=== PATIENT | male | born 1955 | race Caucasian/White ===

== ENCOUNTER 2021-04-03 06:30 | Day surgery (SDC) | payer OTHER ==
[2021-03-31 10:54] LABS: Absolute Lymphocytes (CBC) 1.9 K/uL (0.7-4.9); Basophils % 0.4 % (0-1.3); Lymphocytes % 18.7 % (15.3-44.8); RBC Red Blood Cell Count 4.82 M/uL (4.33-5.43)
[2021-03-31 11:00] LABS: Protime INR 2.68
[2021-03-31 11:11] LABS: Potassium 3.9 mmol/L (3.5-5.1)
[2021-04-03] MEDS ORDERED: METOPROLOL TARTRATE 5 MG/5 ML INJ IV ONE (06:54)
[2021-04-03] MEDS ORDERED: ATROPINE SULF 1 MG/10 ML SYR IV ONE (06:55)
[2021-04-03] MEDS ORDERED: MIDAZOLAM HCL 10 ML ONE (06:55)
[2021-04-03] MEDS ORDERED: FLUMAZENIL 0.1 MG/ML (5 mL VIAL) IV ONE (06:55)
[2021-04-03] MEDS ORDERED: NA CHLORIDE 0.9% 500 ML ONE (07:11)
[2021-04-03] MEDS ORDERED: MIDAZOLAM HCL 2 MG/2 ML INJ ONE (07:53)
--- NOTE | 2021-04-03 09:46 | OP ---
Date of Procedure: 04/03/2021 Surgeon: Franklyn Elliott MD [employer] Operator: Melissa Silva and Ms. Best. I will discuss his case with housekeeper home. I think I may put him on flecainide or amiodarone down the road. I will see him in the office in 2 weeks. Mr. Neely is a 65-year-old, admitted to my service as an outpatient today. Reason For Admission: Direct current cardioversion. Indication: New onset atrial fibrillation that has failed metoprolol and Xarelto. History Of Present Illness: Mr. Neely is a 65-year-old who has had a negative cardiac workup, new onset atrial fibrillation, symptomatic. Failed metoprolol and Xarelto. Procedure In Detail: In the manager labor delivery today he was given in recovery room. He was given a total of 12 mg of Versed for total sedation. He received 1 shock with 100 joules and another one of 200 joules. He converted to sinus rhythm but while in Recovery, he went back into atrial fibrillati on. He received 5 mg of IV metoprolol. Another shock of 200 failed to convert him to sinus rhythm a gain. We will plan to continue his metoprolol and Xarelto for now. He can go home whenever he is aw jin. He had a failed cardioversion. Anesthesia: Total conscious sedation 20 minute. Blood Loss: No blood loss. Complications: No complications. MADI/KEYLA Voice ID: [id number] Report ID: [id number]
[2021-04-03 09:48] VITALS: TEMP 97.4; O2SAT 100
[2021-04-03 11:06] VITALS: BP 115/88
== END 2021-04-03 10:45 | disposition home or self-care (01) ==
LOC: CCL 06:30
DX: I48.0 Paroxysmal atrial fibrillation (principal); I10 Essential (primary) hypertension; E78.2 Mixed hyperlipidemia; F10.20 Alcohol dependence, uncomplicated; Z87.891 Personal history of nicotine dependence; Z82.49 Family history of ischemic heart disease and other diseases of the circulatory system
CPT/HCPCS: 93005; 85025; 80048; 36415; 85610; 85730; 92960; J2250 ×2; J7040

== ENCOUNTER 2021-05-08 07:16 | Day surgery (SDC) | payer OTHER ==
[2021-05-05 09:31] LABS: Hematocrit 46.7 % (39.6-49.0); Lymphocytes % 35.3 % (15.3-44.8); MPV 8.8 fL (7.6-11.3); RBC Red Blood Cell Count 5.08 M/uL (4.33-5.43)
[2021-05-05 09:38] LABS: Protime INR 2.21
--- NOTE | 2021-05-05 09:57 | RAD REPORT ---
EXAM DESCRIPTION: RAD - Chest Pa And Lat (2 Views) - 05/05/2021 9:18 am CLINICAL HISTORY: Pre op pending cardioversion COMPARISON: No comparisons FINDINGS: Lines: None. Lungs: No evidence of edema or pneumonia. Pleural: No significant pleural effusions or pneumothorax. Cardiac: The heart size is within normal limits. Bones: No acute fractures. Other: IMPRESSION: No acute cardiopulmonary disease.
[2021-05-08] MEDS ORDERED: NA CHLORIDE 0.9% 0 ML ONE (07:35)
[2021-05-08] MEDS ORDERED: ATROPINE SULF 1 MG/10 ML SYR IV ONE ×2 (07:57→10:35)
[2021-05-08] MEDS ORDERED: FLUMAZENIL 0.1 MG/ML (5 mL VIAL) IV ONE ×2 (07:57→10:35)
[2021-05-08] MEDS ORDERED: METOPROLOL TARTRATE 5 MG/5 ML INJ IV ONE ×2 (07:57→10:35)
[2021-05-08] MEDS ORDERED: MIDAZOLAM HCL 10 ML ONE (10:35)
[2021-05-08] MEDS ORDERED: NA CHLORIDE 0.9% 500 ML ONE (10:37)
--- NOTE | 2021-05-08 11:24 | OP ---
Date of Procedure: 05/08/2021 Surgeon: Franklyn Elliott MD Procedure: Direct current cardioversion. Indication: Recurrent atrial fibrillation despite flecainide therapy. The patient intolerant to bet a-blockers. Procedure In Detail: Brought to the laboratory [facility] today as an outpatient. He received 10 mg of Versed IV push total. He received 1 shock of 100 joules and remained in atrial fibrillation. I gave him 5 mg of metoprolol IV push. Then, I shocked him 200 joules and he converted to sinus rhythm. There were no complications. Blood Loss: None. Postoperative Diagnosis: Atrial fibrillation converted to sinus rhythm, successful cardioversion. Plan: To continue medical therapy except increase the flecainide from 50 b.i.d. to 100 b.i.d. He wi ll go home whenever he wakes up. He will see me in the office in 1 week. MADI/KEYLA Voice ID: [id number] Report ID: [id number]
[2021-05-08 12:04] VITALS: O2SAT 100
[2021-05-08 12:15] VITALS: BP 104/76
[2021-05-08 12:18] VITALS: TEMP 97
== END 2021-05-08 12:22 | disposition home or self-care (01) ==
LOC: CCL 07:16
DX: I48.0 Paroxysmal atrial fibrillation (principal); I10 Essential (primary) hypertension; E78.2 Mixed hyperlipidemia; F10.20 Alcohol dependence, uncomplicated; Z87.891 Personal history of nicotine dependence; Z82.49 Family history of ischemic heart disease and other diseases of the circulatory system
CPT/HCPCS: 85025; 80048; 36415; 85610; 85730; 71046; 92960; J2250; J7040

== ENCOUNTER 2022-12-05 09:16 | Observation (INO) | payer OTHER ==
[2022-12-05 09:43] LABS: Absolute Lymphocytes (CBC) 1.4 K/uL (0.7-4.9); Hematocrit 46.3 % (39.6-49.0); Lymphocytes % 20.9 % (15.3-44.8); MCV 96.6 fL (80-100); MPV 8.8 fL (7.6-11.3); Platelets 224 thou/uL (152-406); RBC Red Blood Cell Count 4.79 M/uL (4.33-5.43)
[2022-12-05 09:47] LABS: Protime INR 2.63
[2022-12-05] MEDS ORDERED: DIGOXIN 0.25 MG/ML AMP ONE (09:53)
[2022-12-05] MEDS ORDERED: MAGNESIUM SULFATE 1 gm IVPB 1 GM/100 ML BAG IV ONE (09:54)
[2022-12-05] MEDS ORDERED: NA CHLORIDE 0.9% 1,000 ML ONE (09:54)
[2022-12-05] MEDS ORDERED: METOPROLOL TARTRATE 5 MG/5 ML INJ IV ONE ×3 (09:54→10:39)
[2022-12-05 10:09] LABS: Albumin 4.1 g/dL (3.4-5.0); Bilirubin Direct 0.4 mg/dL (0-0.2); Bilirubin Indirect, Calculated 1.2 mg/dL (0.2-0.8); Bilirubin Total 1.6 mg/dL (0.2-1.0); Magnesium 1.9 mg/dL (1.6-2.4); Potassium 3.6 mEq/L (3.5-5.1); Protein, Total 8.5 g/dL (6.4-8.2); Thyroid Stimulating Hormone 1.74 uIU/mL (0.358-3.740); Troponin High Sensitivity 10.7 pg/mL (<58.9)
--- NOTE | 2022-12-05 10:42 | RAD REPORT ---
EXAM DESCRIPTION: PETARChest Single View12/05/2022 10:12 am CLINICAL HISTORY: CHEST PAIN COMPARISON: Chest Pa And Lat (2 Views) dated 05/05/2021 TECHNIQUE: Portable AP view of the chest. FINDINGS: The lungs are clear. No pneumothorax or effusion. The cardiomediastinal contours are unrem arkable. IMPRESSION: No acute cardiopulmonary process.
--- NOTE | 2022-12-05 12:46 | ER ---
Nurse's Notes [facility] Name: Kale Neely Age: 67 yrs Sex: Male : 1955 Arrival Date: 12/05/2022 Time: 09:16 Bed 6 Private MD: Aldo Small V Diagnosis: Persistent atrial fibrillation;adjunct faculty for medical terminology (current) use of anticoagulants Presentation: 12/05 09:35 Chief complaint: Patient states: he was sent by dr. rose for an abnormal EKG. patient ap3 denies any chest pain, or associated symptoms at this time. Coronavirus screen: At this time, the client does not indicate any symptoms associated with coronavirus-19. Ebola Screen: No symptoms or risks identified at this time. Initial Sepsis Screen: Does the patient meet any 2 criteria? No. Patient's initial sepsis screen is negative. Does the patient have a suspected source of infection? No. Patient's initial sepsis screen is negative. Risk Assessment: Do you want to hurt yourself or someone else? Patient reports no desire to harm self or others. Onset of symptoms was December 05, 2022. 09:35 Method Of Arrival: Ambulatory ap3 09:35 Acuity: KORI 2 ap3 Triage Assessment: 09:38 General: Appears in no apparent distress. Behavior is calm, cooperative, appropriate ap3 for age. Pain: Denies pain. Neuro: Level of Consciousness is awake, alert, obeys commands, Oriented to person, place, time, situation. Cardiovascular: Patient's skin is warm and dry. Rhythm is atrial fibrillation. Respiratory: Airway is patent Respiratory effort is even, unlabored, Respiratory pattern is regular, symmetrical. Historical: - Allergies: 09:36 No Known Allergies; ap3 - Home Meds: 09:36 metoprolol succinate 100 mg oral Tablet, Extended Release 24 hr daily [Active]; ap3 rosuvastatin 5 mg oral tablet [Active]; Xarelto oral [Active]; - PMHx: 09:36 Atrial fibrillation; Hypercholesterolemia; ap3 - Immunization history:: Client reports having NOT received the Covid vaccine. - Social history:: Smoking status: Patient denies any tobacco usage or history of. Patient uses alcohol, on a daily basis. Screenin:39 [facility] ED Fall Risk Assessment (Adult) History of falling in the last 3 months, ap3 including since admission No falls in past 3 months (0 pts). Abuse screen: Denies threats or abuse. Nutritional screening: No deficits noted. Tuberculosis screening: No symptoms or risk factors identified. Assessment: 12:15 Reassessment: No changes from previously documented assessment. Patient and/or family mb9 updated on plan of care and expected duration. Pain level reassessed. Patient is alert, oriented x 3, equal unlabored respirations, skin warm/dry/pink. 13:30 Reassessment: No changes from previously documented assessment. Patient and/or family mb9 updated on plan of care and expected duration. Pain level reassessed. Patient is alert, oriented x 3, equal unlabored respirations, skin warm/dry/pink. 14:41 Reassessment: No changes from previously documented assessment. Patient and/or family mb9 updated on plan of care and expected duration. Pain level reassessed. Patient is alert, oriented x 3, equal unlabored respirations, skin warm/dry/pink. 16:44 Reassessment: No changes from previously documented assessment. Patient and/or family mb9 updated on plan of care and expected duration. Pain level reassessed. Patient is alert, oriented x 3, equal unlabored respirations, skin warm/dry/pink. 17:15 Reassessment: See [facility] for further charting. mb9 17:35 Reassessment: ATTEMPTED TO CALL REPORT, NO ANSWER. bp 17:45 Reassessment: ATTEMPTED TO CALL REPORT, NO ANSWER. bp 18:05 Reassessment: ATTEMPTED TO CALL REPORT, NO ANSWER. PT JOSHUA FOR B/S REPORT. bp Vital Signs: 09:35 BP 170 / 112; Pulse 129; Resp 19; Pulse Ox 100% ; Weight 86.18 kg; Pain 0/10; ap3 09:57 BP 152 / 98; Pulse 108; Pulse Ox 100% ; ap3 10:15 BP 165 / 101; Pulse 81; Pulse Ox 99% on R/A; ap3 10:49 BP 161 / 107; Pulse 77; Pulse Ox 97% on R/A; ap3 12:15 BP 165 / 104; Pulse 86; Resp 18; Pulse Ox 98% on R/A; mb9 12:48 BP 159 / 99; Pulse 95; Resp 16; Pulse Ox 97% on R/A; mb9 13:43 BP 147 / 96; Pulse 80; Resp 17; Pulse Ox 97% on R/A; mb9 13:43 Height 5 ft. 6 in. ; mb9 14:41 BP 153 / 99; Pulse 80; Resp 18; Pulse Ox 100% on R/A; mb9 16:44 BP 143 / 87; Pulse 77; Resp 18; Pulse Ox 100% on R/A; mb9 13:43 Body Mass Index 30.67 (86.18 kg, 167.64 cm) mb9 09:35 Pain Scale: Adult ap3 ED Course: 09:18 Patient arrived in ED. rg4 09:19 Aldo Small MD is Private Physician. rg4 09:19 Az Walker MD is Attending Physician. hira 09:30 Initial lab(s) drawn, by me, sent to lab. EKG done, by ED staff, reviewed by Az Walker MD. Inserted saline lock: 20 gauge in right antecubital area, using aseptic technique. Blood collected. 09:35 Tessa Maloney RN is Primary Nurse. ap3 09:36 Triage completed. ap3 09:39 Arm band placed on right wrist. ap3 09:39 Patient has correct armband on for positive identification. Placed in gown. Bed in low ap3 position. Call light in reach. Adult w/ patient. Provided Education on: need for continued monitoring. doubler operator on. Pulse ox on. NIBP on. 09:57 xray at bedside. ap3 10:13 XRAY Chest (1 view) In Process Unspecified. EDMS 12:15 Report received from VANIA Zarate. mb9 12:44 Aldo Small MD is Hospitalizing Provider. hira 18:27 No provider procedures requiring assistance completed. Patient admitted, IV remains in bp place. Administered Medications: 09:50 Drug: Metoprolol IVP 5 mg Route: IVP; Site: right antecubital; ap3 10:35 Follow up: Response: No adverse reaction ap3 09:55 Drug: Digoxin IVP 0.5 mg Route: IVP; Site: right antecubital; ap3 10:35 Follow up: Response: No adverse reaction ap3 09:57 Drug: NS 0.9% IV 1000 ml Route: IV; Rate: 125 ml/hr; Site: right antecubital; ap3 18:29 Follow up: IV Status: Completed infusion; IV Intake: 1000ml bp 09:57 Drug: Magnesium Sulfate IVPB 1 grams Route: IVPB; Infused Over: 1 hrs; Site: right ap3 antecubital; 11:03 Follow up: Response: No adverse reaction; IV Status: Completed infusion; IV Intake: nj1 100ml 10:03 Drug: Metoprolol IVP 5 mg Route: IVP; Site: right antecubital; ap3 10:35 Follow up: Response: No adverse reaction ap3 10:35 Drug: Metoprolol IVP 5 mg Route: IVP; Site: right antecubital; ap3 11:06 Follow up: Response: No adverse reaction ap3 12:48 Drug: Sotalol PO 80 mg Route: PO; mb9 14:41 Follow up: Response: No adverse reaction mb9 Intake: 11:03 IV: 100ml; Total: 100ml. nj1 18:29 IV: 1000ml; Total: 1100ml. bp Outcome: 12:46 Decision to Hospitalize by Provider. hira 18:27 Admitted to Med/surg accompanied by nurse, via wheelchair, room 212, with chart, Report bp called to BEDSIDE REPORT ZAKI CARO 18:27 Condition: stable 18:27 Instructed on the need for admit. 18:29 Patient left the ED. bp Signatures: Dispatcher [employer] EDMS Az Walker MD MD cha Garcia, Rubi rg4 Karson Burdick RN RN Tessa Buenrostro RN RN ap3 Elaine Barriga RN RN mb9 Caroline Pickens RN RN nj1
--- NOTE | 2022-12-05 12:46 | EDPHYS ---
Physician Documentation [facility] Name: Kale Neely Age: 67 yrs Sex: Male : 1955 Arrival Date: 12/05/2022 Time: 09:16 Bed 6 Private MD: Aldo Small V ED Physician Az Walker HPI: 12/05 09:34 This 67 yrs old Male presents to ER via Unassigned with complaints of hira Abnormal EKG. 09:34 The patient presents with a history of irregular heart beat, heart racing. Context: The hira symptoms occur at rest, with light activity. Onset: The symptoms/episode began/occurred yesterday. Duration: The patient or guardian reports multiple episodes, with no pattern. Modifying factors: The symptoms are aggravated by nothing. The symptoms are alleviated by nothing. Associated signs and symptoms: The patient has no apparent associated signs or symptoms. Severity of symptoms: At their worst the symptoms were mild in the emergency department the symptoms are unchanged. The patient has experienced similar episodes in the past, a few times. Historical: - Allergies: 09:36 No Known Allergies; ap3 - Home Meds: 09:36 metoprolol succinate 100 mg oral Tablet, Extended Release 24 hr daily [Active]; ap3 rosuvastatin 5 mg oral tablet [Active]; Xarelto oral [Active]; - PMHx: 09:36 Atrial fibrillation; Hypercholesterolemia; ap3 - Immunization history:: Client reports having NOT received the Covid vaccine. - Social history:: Smoking status: Patient denies any tobacco usage or history of. Patient uses alcohol, on a daily basis. ROS: 09:40 Constitutional: Negative for fever, chills, and weight loss, Eyes: Negative for injury, hira pain, redness, and discharge, ENT: Negative for injury, pain, and discharge, Neck: Negative for injury, pain, and swelling, Respiratory: Negative for shortness of breath, cough, wheezing, and pleuritic chest pain, Abdomen/GI: Negative for abdominal pain, nausea, vomiting, diarrhea, and constipation, Back: Negative for injury and pain, : Negative for injury, bleeding, discharge, and swelling, MS/Extremity: Negative for injury and deformity, Skin: Negative for injury, rash, and discoloration, Neuro: Negative for headache, weakness, numbness, tingling, and seizure, Psych: Negative for depression, anxiety, suicide ideation, homicidal ideation, and hallucinations, Allergy/Immunology: Negative for hives, rash, and allergies, Endocrine: Negative for neck swelling, polydipsia, polyuria, polyphagia, and marked weight changes, Hematologic/Lymphatic: Negative for swollen nodes, abnormal bleeding, and unusual bruising. 09:40 Cardiovascular: Positive for palpitations. Exam: 09:40 Constitutional: This is a well developed, well nourished patient who is awake, alert, hira and in no acute distress. Head/Face: Normocephalic, atraumatic. Eyes: Pupils equal round and reactive to light, extra-ocular motions intact. Lids and lashes normal. Conjunctiva and sclera are non-icteric and not injected. Cornea within normal limits. Periorbital areas with no swelling, redness, or edema. ENT: Nares patent. No nasal discharge, no septal abnormalities noted. Tympanic membranes are normal and external auditory canals are clear. Oropharynx with no redness, swelling, or masses, exudates, or evidence of obstruction, uvula midline. Mucous membranes moist. Neck: Trachea midline, no thyromegaly or masses palpated, and no cervical lymphadenopathy. Supple, full range of motion without nuchal rigidity, or vertebral point tenderness. No Meningismus. Chest/axilla: Normal chest wall appearance and motion. Nontender with no deformity. No lesions are appreciated. Respiratory: Lungs have equal breath sounds bilaterally, clear to auscultation and percussion. No rales, rhonchi or wheezes noted. No increased work of breathing, no retractions or nasal flaring. Abdomen/GI: Soft, non-tender, with normal bowel sounds. No distension or tympany. No guarding or rebound. No evidence of tenderness throughout. Back: No spinal tenderness. No costovertebral tenderness. Full range of motion. Male : Normal genitalia with no discharge or lesions. Skin: Warm, dry with normal turgor. Normal color with no rashes, no lesions, and no evidence of cellulitis. MS/ Extremity: Pulses equal, no cyanosis. Neurovascular intact. Full, normal range of motion. Neuro: Awake and alert, GCS 15, oriented to person, place, time, and situation. Cranial nerves II-XII grossly intact. Motor strength 5/5 in all extremities. Sensory grossly intact. Cerebellar exam normal. Normal gait. Psych: Awake, alert, with orientation to person, place and time. Behavior, mood, and affect are within normal limits. 09:40 Cardiovascular: Rate: tachycardic, actual rate is 129 bpm, Rhythm: irregularly irregular, Pulses: Pulses are 4+ in bilateral radial, brachial, femoral, popliteal, posterior tibial and and dorsalis pedis arteries.. Heart sounds: normal, normal S1and S2, no S3 or S4, no murmur, no rub, no gallop, Edema: is not appreciated, JVD: is not appreciated. 09:42 ECG was reviewed by the Attending Physician. [facility] 12:58 ECG was reviewed by the Attending Physician. [facility] Vital Signs: 09:35 BP 170 / 112; Pulse 129; Resp 19; Pulse Ox 100% ; Weight 86.18 kg; Pain 0/10; ap3 09:57 BP 152 / 98; Pulse 108; Pulse Ox 100% ; ap3 10:15 BP 165 / 101; Pulse 81; Pulse Ox 99% on R/A; ap3 10:49 BP 161 / 107; Pulse 77; Pulse Ox 97% on R/A; ap3 12:15 BP 165 / 104; Pulse 86; Resp 18; Pulse Ox 98% on R/A; mb9 12:48 BP 159 / 99; Pulse 95; Resp 16; Pulse Ox 97% on R/A; mb9 13:43 BP 147 / 96; Pulse 80; Resp 17; Pulse Ox 97% on R/A; mb9 13:43 Height 5 ft. 6 in. ; mb9 14:41 BP 153 / 99; Pulse 80; Resp 18; Pulse Ox 100% on R/A; mb9 16:44 BP 143 / 87; Pulse 77; Resp 18; Pulse Ox 100% on R/A; mb9 13:43 Body Mass Index 30.67 (86.18 kg, 167.64 cm) mb9 09:35 Pain Scale: Adult ap3 MDM: 09:19 Patient medically screened. [facility] 09:41 YUE Risk Score: Not Applicable. Differential diagnosis: arrythmia, dehydration. Data [facility] reviewed: vital signs, nurses notes, lab test result(s), EKG, radiologic studies. Consideration of Admission/Observation Patient was admitted/placed on observation. Escalation of care including admission/observation considered. I considered the following discharge prescriptions or medication management in the emergency department Medications were administered in the Emergency Department. See MAR. Independent interpretation of the following test(s) in the Emergency Department EKG: See my EKG interpretation above. Test considered but Not performed: CT: no ct chest. Care significantly affected by the following chronic conditions: high cholesterol, a fib. 12/05 09:26 Order name: Basic Metabolic Panel; Complete Time: 10:14 [facility] 12/05 09:26 Order name: CBC with Diff; Complete Time: 10:14 [facility] 12/05 09:26 Order name: LFT's; Complete Time: 10:14 [facility] 12/05 09:26 Order name: Magnesium; Complete Time: 10:14 [facility] 12/05 09:26 Order name: NT PRO-BNP; Complete Time: 10:14 [facility] 12/05 09:26 Order name: PT-INR; Complete Time: 10:14 [facility] 12/05 09:26 Order name: Troponin HS; Complete Time: 10:14 [facility] 12/05 09:26 Order name: TSH; Complete Time: 10:14 [facility] 12/05 09:26 Order name: Urinalysis w/ reflexes [facility] 12/05 18:12 Order name: Troponin High Sensitivity [facility] 12/05 09:26 Order name: XRAY Chest (1 view); Complete Time: 10:53 [facility] 12/05 09:26 Order name: EKG; Complete Time: 09:27 [facility] 12/05 10:55 Order name: EKG; Complete Time: 10:55 [facility] 12/05 12:54 Order name: CONS Physician Consult [facility] 12/05 09:26 Order name: Cardiac monitoring; Complete Time: 09:40 [facility] 12/05 09:26 Order name: EKG - Nurse/Tech; Complete Time: 09:40 [facility] 12/05 09:26 Order name: IV Saline Lock; Complete Time: 09:40 [facility] 12/05 09:26 Order name: Labs collected and sent; Complete Time: :40 [facility] 12/05 09:26 Order name: O2 Per Protocol; Complete Time: 09:40 [facility] 12/05 09:26 Order name: O2 Sat Monitoring; Complete Time: 09:40 [facility] 12/05 10:55 Order name: EKG - Nurse/Tech; Complete Time: 11:29 [facility] EC:42 Rate is 111 beats/min. Rhythm is irregularly irregular. QRS [place] is Normal. CO interval hira is normal. QRS interval is normal. QT interval is normal. No Q waves. T waves are Normal. No ST changes noted. Clinical impression: Atrial Fibrillation and No evidence of ischemia. Interpreted by me. Reviewed by me. 12:58 Rate is 844 beats/min. Rhythm is irregularly irregular. QRS [place] is Normal. CO interval hira is normal. QRS interval is normal. QT interval is normal. No Q waves. T waves are Normal. No ST changes noted. Clinical impression: Atrial Fibrillation and No evidence of ischemia. Interpreted by me. Reviewed by me. Administered Medications: 09:50 Drug: Metoprolol IVP 5 mg Route: IVP; Site: right antecubital; ap3 10:35 Follow up: Response: No adverse reaction ap3 09:55 Drug: Digoxin IVP 0.5 mg Route: IVP; Site: right antecubital; ap3 10:35 Follow up: Response: No adverse reaction ap3 09:57 Drug: NS 0.9% IV 1000 ml Route: IV; Rate: 125 ml/hr; Site: right antecubital; ap3 18:29 Follow up: IV Status: Completed infusion; IV Intake: 1000ml bp 09:57 Drug: Magnesium Sulfate IVPB 1 grams Route: IVPB; Infused Over: 1 hrs; Site: right ap3 antecubital; 11:03 Follow up: Response: No adverse reaction; IV Status: Completed infusion; IV Intake: nj1 100ml 10:03 Drug: Metoprolol IVP 5 mg Route: IVP; Site: right antecubital; ap3 10:35 Follow up: Response: No adverse reaction ap3 10:35 Drug: Metoprolol IVP 5 mg Route: IVP; Site: right antecubital; ap3 11:06 Follow up: Response: No adverse reaction ap3 12:48 Drug: Sotalol PO 80 mg Route: PO; mb9 14:41 Follow up: Response: No adverse reaction mb9 Disposition Summary: 12/05/22 12:46 Hospitalization Ordered Hospitalization Status: Observation hira Provider: Aldo Small cha Location: Telemetry/MedSurg (observation) hira Condition: Fair hira Problem: new hira Symptoms: have improved hira Bed/Room Type: Standard hira Room Assignment: [facility](12/05/22 17:37) bd Diagnosis - Persistent atrial fibrillation hira - intermediate frame tender (current) use of anticoagulants hira Forms: - Medication Reconciliation Form hira - SBAR form hira - Leadership Thank You Letter hira Signatures: Dispatcher [employer] Kamila Michael Corey, MD MD cha Prokisch, Amanda, RN RN ap3 Nithya, Elaine Sanchez RN RN mb9 Karson Burdick RN bp Caroline Pickens RN nj1 Corrections: (The following items were deleted from the chart) 17:37 12:46 hira bd
[2022-12-05] MEDS ORDERED: SOTALOL HCL 80 MG TAB ONE ×2 (12:57→17:48)
[2022-12-05] MEDS ORDERED: ONDANSETRON 4 MG/2 ML VIAL IV PRN (17:01)
[2022-12-05] MEDS ORDERED: ACETAMINOPHEN 325 MG TABLET PO PRN (17:01)
[2022-12-05 17:08] VITALS: BMI 28.7
[2022-12-05] MEDS ORDERED: RIVAROXABAN 20 MG TABLET PO SCH (17:11)
[2022-12-05] MEDS: SOTALOL HCL 80 MG TAB PO SCH (17:44)
[2022-12-05] MEDS ORDERED: RIVAROXABAN 20 MG TABLET PO ONE (17:48)
--- NOTE | 2022-12-05 18:06 | P.SSS ---
Patient History Date of Service: 12/05/22 Reason for admission: SOTALOL INTRODUCTION History of Present Illness: MR. COLIN HAS A FIB THAT IS NOT CONTROLLED. DR. PARKINSON SENT HIM TO ER FOR OBSERVATION FOR SOTALOL STARTUP. HE IS ON METOPROLOL SO FAR WITH XARELTO. HE IS SYMPTOMFREE. Allergies No Known Allergies Allergy (Verified 05/05/21 08:57) Home medications list reviewed: Yes Home Medications: Lisinopril/Hydrochlorothiazide [Zestoretic 10-12.5 mg Tablet] 1 each PO DAILY 05/20/15 - Past Medical/Surgical History Diabetic: No - Social History Smoking Status: Never smoker Review of Systems 10-point ROS is otherwise unremarkable General: Weakness Physical Examination - Physical Exam General: Oriented x3, Mild distress HEENT: Atraumatic, PERRLA, Mucous membr. moist/pink, EOMI, Sclerae nonicteric Neck: Supple, 2+ carotid pulse no bruit, No LAD, Without JVD or thyroid abnormality Respiratory: Clear to auscultation bilaterally, Normal air movement Cardiovascular: Irregular heart rate/rhythm Gastrointestinal: Normal bowel sounds, No tenderness Musculoskeletal: No tenderness Integumentary: No rashes Neurological: Normal gait, Normal speech, Normal strength at 5/5 x4 extr, Normal tone, Normal affect Lymphatics: No axilla or inguinal lymphadenopathy - Studies Laboratory Data (last 24 hrs) 12/05/22 12/05/22 12/05/22 09:30 09:30 09:30 WBC 6.70 Hgb 15.4 Hct 46.3 Plt Count 224 PT 28.9 H INR 2.63 Sodium 136 Potassium 3.6 BUN 13 Creatinine 1.19 Glucose 119 H Magnesium 1.9 Total Bilirubin 1.6 H AST 21 ALT 26 Alkaline Phosphatase 121 H - Diagnosis (Problem(s)) (1) Uncontrolled atrial fibrillation Current Visit: Yes Status: Acute Plan: SOTALOL BID STOP METOPROLOL XARELTO CONTINUE DC TOMORROW PM OKAY. HE IS VERY STABLE. OBSERVE FOR ARRYTHMIA. - Disposition Disposition: ROUTINE DISCHARGE
--- NOTE | 2022-12-05 18:25 | EKG ---
Test Date: 2022-12-05 Test Time: 09:29:51 Participant Administrator: IRAM MEASUREMENT RESULTS: Intervals: Rate: 111 IN: QRSD: 86 QT: 344 QTc: 467 [place]: P: IN: QRS: -26 T: 41 INTERPRETIVE STATEMENTS: Atrial fibrillation with premature ventricular or aberrantly conducted complexes Nonspecific ST abnormality, probably digitalis effect Abnormal ECG Compared to ECG 04/03/2021 10:00:35 Ventricular premature complex(es) now present ST (T wave) deviation now present Prolonged QT interval no longer present Electronically Signed On 12-05-22 18:24:26 CDT by Sam Lunsford
[2022-12-05] MEDS: FAMOTIDINE 20 MG/2 ML VIAL IV SCH (20:15)
[2022-12-05 21:25] VITALS: O2SAT 96
[2022-12-06 02:58] LABS: Absolute Lymphocytes (CBC) 1.7 K/uL (0.7-4.9); Hematocrit 41.9 % (39.6-49.0); Lymphocytes % 29.5 % (15.3-44.8); MCV 97.4 fL (80-100); Platelets 194 thou/uL (152-406)
[2022-12-06 03:07] LABS: Potassium 4.1 mEq/L (3.5-5.1)
[2022-12-06] MEDS: SOTALOL HCL 80 MG TAB PO SCH (05:27)
[2022-12-06] MEDS: FAMOTIDINE 20 MG/2 ML VIAL IV SCH (08:33)
[2022-12-06 12:13] VITALS: BP 148/89; TEMP 98.4
--- NOTE | 2022-12-06 20:33 | CON ---
Date of Consultation: 12/06/2022 Reason For Consultation: Atrial fibrillation with rapid ventricular response. History Of Present Illness: This is a 67-year-old male with a history of atrial fibrillation, presen saima to my office yesterday as heart rate was in the 120s and the patient was feeling short of breath with activities. He denies having any chest pain, nausea, or vomiting. Past Medical History: Atrial fibrillation, hypertension. Medications: Refer to reconciliation sheet for detailed list. Allergies: NO KNOWN DRUG ALLERGIES. Family History: No premature coronary artery disease or cancer. Social History: Does not smoke or drink. Does not use any drugs. Review of Systems: All systems reviewed and they were negative. Physical Examination: Vital Signs: Reviewed. Head and Neck: Pupils are equal, reactive to light. Intact eye movements. No JVD. No cervical lym phadenopathy. Neck is supple. Thyroid is not enlarged. Lungs: Clear to auscultation bilaterally. No rhonchi, wheezing, or crackles. No accessory muscle u se. Heart: Irregularly irregular. No extra sounds. Abdomen: Soft, nontender. Bowel sounds positive. No organomegaly. No masses or hernia. No rigidi ty or rebound. Extremities: No edema, clubbing, or cyanosis. Intact pulses. Skin: No rash. No nodule. Neurological: Alert, awake, oriented x3. No acute focal deficits appreciated. Investigations: BUN 12, creatinine 1.07, and NT-proBNP is 827. Troponins are negative and hemoglobi n is 13.9. Assessment And Recommendations: 1.Atrial fibrillation with rapid ventricular response. Admitted to start a sotalol. His heart rate is being controlled now but still in atrial fibrillation. After the third dose, check EKG to evalua te QTc interval and plan for JESSICA cardioversion tomorrow if he continues to be in atrial fibrillation or this can be done as an outpatient as well as his heart rate is controlled and continue Xarelto. 2.Hypertension. Blood pressure is controlled. 3.Elevated NT-proBNP, likely diastolic heart failure. Reassess with echo after we get his heart in regular rhythm. SR/MODL Voice ID: [id number] Report ID: [id number]
--- NOTE | 2022-12-07 07:57 | ECHO ---
HEIGHT: 5 ft 6 in WEIGHT: 190 lb 0 oz DATE OF STUDY: 12/06/[address]: Az Walker MD 2-DIMENSIONAL: YES M.MODE: YES DOPPLER: YES COLOR FLOW: YES TDS: PORTABLE: YES DEFINITY: BUBBLE STUDY: DIAGNOSIS: ATRIAL FIBRILLATION CARDIAC HISTORY: CATHERIZATION: NO SURGERY: NO PROSTHETIC VALVE: NO PACEMAKER: NO MEASUREMENTS (cm) DIASTOLIC (NORMALS) SYSTOLIC (NORMALS) IVSd 1.1 (0.6-1.2) LA Diam 4.6 (1.9-4.0) LVEF 67% LVIDd 4.7 (3.5-5.7) LVIDs 2.9 (2.0-3.5) %FS 37% LVPWd 1.1 (0.6-1.2) Ao Diam 2.7 (2.0-3.7) 2 DIMENSIONAL ASSESSMENT: RIGHT ATRIUM: NORMAL LEFT ATRIUM: ENLARGED RIGHT VENTRICLE: NORMAL LEFT VENTRICLE: NORMAL TRICUSPID VALVE: MILD TRICUSPID REGURGITATION MITRAL VALVE: MILD MITRAL REGUGITATION PULMONIC VALVE: MILD PULMONIC INSUFFICIENCY AORTIC VALVE: MILD AORTIC INSUFFICIENCY PERICARDIAL EFFUSION: NONE AORTIC ROOT: NORMAL LEFT VENTRICULAR WALL MOTION: NORMAL DOPPLER/COLOR FLOW: SEE BELOW COMMENTS: 1. NORMAL LEFT VENTRICULAR EJECTION FRACTION 55-60% WITH NORMAL WALL MOTION 2. ATRIAL FIBRILLATION 3. LEFT ATRIAL ENLARGEMENT 4. MILD MITRAL REGURGITATION, AORTIC INSUFFICIENCY, TRICUSPID REGUGITATION, PULMONIC INSUFFICIENCY TECHNOLOGIST: QUINN MON
[2022-12-07] MEDS ORDERED: hydroCHLOROthiazide 12.5 MG CAP PO SCH (09:00)
[2022-12-07] MEDS ORDERED: LISINOPRIL PO SCH (09:00)
[2022-12-07] MEDS ORDERED: RIVAROXABAN 20 MG TABLET PO SCH (09:00)
[2022-12-07] MEDS ORDERED: [UNRECOGNIZED DRUG - OTHER] PO SCH (09:00)
[2022-12-07] MEDS ORDERED: HOME MED 1 EA UNK (Rosuvastatin Calcium [Rosuvastatin Calcium] 5 MG Tablet) PO SCH (09:00)
[2022-12-07] MEDS ORDERED: lisinopriL 10 MG TAB PO SCH (09:00)
[2022-12-07] MEDS ORDERED: HYDROCHLOROTHIAZIDE PO SCH (09:00)
--- NOTE | 2022-12-07 14:00 | EKG ---
Test Date: 2022-12-05 Test Time: 11:27:54 Heavy Forger: ALP MEASUREMENT RESULTS: Intervals: Rate: 84 WA: QRSD: 88 QT: 362 QTc: 427 [place]: P: [place]: QRS: -32 T: -38 INTERPRETIVE STATEMENTS: Atrial fibrillation with premature ventricular or aberrantly conducted complexes Left axis deviation Abnormal ECG Compared to ECG 12/05/2022 09:29:51 Left-axis deviation now present ST (T wave) deviation no longer present Electronically Signed On 12-07-22 13:57:15 CDT by Sam Lunsford
== END 2022-12-06 15:00 | disposition home or self-care (01) ==
LOC: ER 09:16 → ERHOLD 12:50 → 2ND 17:51
PROVIDERS: ADMIT Internal Medicine; ATTEND Internal Medicine
DX: I48.11 Longstanding persistent atrial fibrillation (principal); E78.00 Pure hypercholesterolemia, unspecified; R79.89 Other specified abnormal findings of blood chemistry; I10 Essential (primary) hypertension; Z79.01 Long term (current) use of anticoagulants; Z91.148 Patient's other noncompliance with medication regimen for other reason
CPT/HCPCS: 36415; 71045; 80048; 80076; 83735; 83880; 84443; 84484; 85025; 85610; 93005; 93306; 96361; 96365; 96375; 99285; J1160; J3475; J7030